=== PATIENT | female | born 1995 | race Caucasian/White ===

== ENCOUNTER 2024-07-07 17:41 | Emergency (ER) | payer SELFPAY ==
[~2024-07-07] VITALS: Ht 160 cm; Wt 75.0 kg
[2024-07-07 17:46] VITALS: BP 125/80; PULSE 105; RESP 16; TEMP 98.3; O2SAT 100
[2024-07-07] MEDS: HYDROCODONE/ACETAMINOPHEN 5/325MG TABLET PO STA (19:00)
[2024-07-07] MEDS: KETOROLAC 30MG/ML VIAL IM STA (19:00)
[2024-07-07] MEDS ORDERED: NAPR-681 PO (19:46)
[2024-07-07] MEDS ORDERED: HYDR-4001 PO (19:46)
== END 2024-07-07 21:09 | disposition home or self-care (01) ==
LOC: ER 17:41
DX: S82.841A Displaced bimalleolar fracture of right lower leg, initial encounter for closed fracture (principal); W10.8XXA Fall (on) (from) other stairs and steps, initial encounter; Y93.89 Activity, other specified; Y92.89 Other specified places as the place of occurrence of the external cause; Y99.8 Other external cause status
CPT/HCPCS: 73610; 29515; 96372; 99283; J1885; Z7610